=== PATIENT | male | born 1980 | race American Indian/Alaskan Native ===

== ENCOUNTER 2021-01-19 07:18 | Emergency (ER) | payer OTHER ==
[2021-01-19 07:49] VITALS: BP 125/78
--- NOTE | 2021-01-19 08:25 | Emergency Department Report ---
- General Chief complaint: Fever Stated complaint: SPIDER BITE Time Seen by Provider: 01/19/21 08:25 Source: patient Mode of arrival: Ambulatory Limitations: No Limitations - History of Present Illness Initial comments: 40 YO AA COMES TO ER SP SPIDER BITE THIS PAST WEEKEND TO RUE (TRICEPT AREA). HE DOES NOT KNOW WHAT KIND OF SPIDER. AREA RED. NO NECROSIS/SLOUGHING. ABC INTACT VSS NO FEVER FULL ROM EXTREMITY NO ABSCESS FORMATION PT REPORTS PRIOR HX OF THE SAME BITE WITH SAME SYMPTOMS. MD complaint: insect bite/sting -: Gradual, days(s) Tetanus Up to Date: yes Location: RUE Severity: mild Consistency: constant Improves with: none Worsens with: none Context: none Associated symptoms: denies other symptoms Treatments Prior to Arrival: none - Related Data Previous Rx's Medication Instructions Recorded Last Taken Type cephALEXin [Keflex] 500 mg PO Q12HR #20 cap 01/19/21 Unknown Rx Abscess Boil HPI - HPI Chief Complaint: Fever Stated Complaint: SPIDER BITE Time Seen by Provider: 01/19/21 08:25 Home Medications: Previous Rx's Medication Instructions Recorded Last Taken Type cephALEXin [Keflex] 500 mg PO Q12HR #20 cap 01/19/21 Unknown Rx ED Review of Systems ROS: Stated complaint: SPIDER BITE Other details as noted in HPI Comment: All other systems reviewed and negative ED Past Medical Hx - Past Medical History Previous Medical History?: No - Surgical History Past Surgical History?: No - Family History Family history: no significant - Social History Smoking Status: Never Smoker Substance Use Type: None - Medications Home Medications: Home Medications Medication Instructions Recorded Confirmed Last Taken Type cephALEXin [Keflex] 500 mg PO Q12HR #20 cap 01/19/21 Unknown Rx ED Physical Exam - General Limitations: No Limitations General appearance: alert, in no apparent distress - Head Head exam: Present: atraumatic, normocephalic - Eye Eye exam: Present: normal appearance - ENT ENT exam: Present: mucous membranes moist - Neck Neck exam: Present: normal inspection - Respiratory Respiratory exam: Present: normal lung sounds bilaterally. Absent: respiratory distress - Cardiovascular Cardiovascular Exam: Present: regular rate, normal rhythm. Absent: systolic murmur, diastolic murmur, rubs, gallop - GI/Abdominal GI/Abdominal exam: Present: soft, normal bowel sounds - Rectal Rectal exam: Present: deferred - Extremities Exam Extremities exam: Present: normal inspection - Back Exam Back exam: Present: normal inspection - Neurological Exam Neurological exam: Present: alert, oriented X3 - Psychiatric Psychiatric exam: Present: normal affect, normal mood - Skin Skin exam: Present: warm, dry, normal color, other (RA TRICEPT AREA INSECT BITE; NO NECROSIS; RED; NO FLAT. FOR I/D). Absent: rash ED Course Vital Signs 01/19/21 07:47 Temperature 98.0 F Pulse Rate 72 Respiratory 18 Rate Blood Pressure 125/78 [Right] O2 Sat by Pulse 99 Oximetry ED Medical Decision Making - Medical Decision Making Vital Signs 01/19/21 07:47 Temperature 98.0 F Pulse Rate 72 Respiratory 18 Rate Blood Pressure 125/78 [Right] O2 Sat by Pulse 99 Oximetry PT REPORTS SPIDER BITE TO RUE NO NECROSIS MILD REDNESS NO ABSCESS PT HAS HAD SPIDER BITE IN THE PAST - WITH SAME SYMPTOMS NEUROVASC INTACT RUE DC HOME WITH DC PLAN OF CARE INCLUDING FOLLOW UP, MEDICATIONS, ACTIVITY AND DIET; PT VERBALIZES UNDERSTANDING. ON DC PT VSS AND NAD. - Differential Diagnosis SPIDER BITE Critical care attestation.: If time is entered above; I have spent that time in minutes in the direct care of this critically ill patient, excluding procedure time. ED Disposition Clinical Impression: Insect bite, Cellulitis Disposition: HOME / SELF CARE / HOMELESS Is pt being admited?: No Does the pt Need Aspirin: No Condition: Stable Instructions: Cellulitis, Adult, Insect Bite, Adult Additional Instructions: DIET TOLERATED STAY WELL HYDRATED MOTRIN OR TYLENOL FOR PAIN MED ORDERED TODAY FOLLOW UP WITH PCP SUNDAY IF NOT BETTER-REFERRAL BELOW Prescriptions: cephALEXin [Keflex] 500 mg PO Q12HR #20 cap Referrals: KUMAR ROMAN MD [Staff Physician] - 3-5 Days Time of Disposition: 08:28
== END 2021-01-19 08:51 | disposition home or self-care (01) ==
LOC: ED 07:18
DX: T63.301A Toxic effect of unspecified spider venom, accidental (unintentional), initial encounter (principal); L03.90 Cellulitis, unspecified; Y92.89 Other specified places as the place of occurrence of the external cause
CPT/HCPCS: 99281